=== PATIENT | female | born 1960 ===

== ENCOUNTER 2017-04-15 18:40 | Emergency (ER) | payer MEDICAID ==
[2017-04-15 18:50] VITALS: BP 134/78; PULSE 69; RESP 20; TEMP 98.9; O2SAT 100
--- NOTE | 2017-04-15 20:31 | ED PDOC ---
Upper Extremity Pain/Injury Time Seen by Provider: 04/15/17 19:18 Chief Complaint (Nursing): Upper Extremity Problem/Injury Chief Complaint (Provider): Left elbow pain History Per: Patient History/Exam Limitations: no limitations Onset/Duration Of Symptoms: Persistent (1 week) Current Symptoms Are (Timing): Still Present Quality: "Pain" Exacerbating Factor(s): Movement Additional Complaint(s): Coreen George is a 56 y/o female presenting to the ER on 04/15/2017 with complaints of atraumatic left elbow pain for the past week. Patient notes pain worsens when she turns her palm facing down. She states pain radiates down her arm. Patient denies numbness, weakness, or tingling sensation. Past Medical History Reviewed: Historical Data, Nursing Documentation, Vital Signs Vital Signs: Last Vital Signs Temp 98.9 F 04/15/17 18:48 Pulse 69 04/15/17 18:48 Resp 20 04/15/17 18:48 BP 134/78 04/15/17 18:48 Pulse Ox 100 04/15/17 18:48 - Medical History PMH: Asthma, Rheumatoid Arthritis - Surgical History Surgical History: No Surg Hx - Family History Family History: States: Unknown Family Hx - Social History Current smoker - smoking cessation education provided: No Alcohol: None Drugs: Denies - Home Medications Home Medications: Ambulatory Orders Medication Instructions Recorded Albuterol Sulfate [Albuterol Hfa] 0.09 mg IH QID PRN #30 ml 09/28/14 Methylprednisolone [Medrol Dose 4 mg PO DAILY #21 mg 09/28/14 Pack (21 tabs)] Naproxen [Naprosyn] 500 mg PO BID PRN #30 tab 04/15/17 - Allergies Allergies/Adverse Reactions: Allergies Allergy/AdvReac Type Severity Reaction Status Date / Time No Known Allergies Allergy Verified 09/27/14 22:14 Review of Systems ROS Statement: Except As Marked, All Systems Reviewed And Found Negative Musculoskeletal: Positive for: Arm Pain ((+) left elbow pain ) Neurological: Negative for: Weakness, Numbness Physical Exam - Reviewed Nursing Documentation Reviewed: Yes Vital Signs Reviewed: Yes - Physical Exam Appears: Positive for: Non-toxic, No Acute Distress Head Exam: Positive for: ATRAUMATIC Skin: Positive for: Normal Color. Negative for: Rash Eye Exam: Positive for: Normal appearance Neck: Positive for: Normal Cardiovascular/Chest: Positive for: Regular Rate, Rhythm Pulses-Radial (L): 2+ Pulses-Radial (R): 2+ Extremity: Positive for: Normal ROM (full ROM actively , pain elicited with active pronation). Negative for: Tenderness, Deformity, Swelling Neurologic/Psych: Positive for: Alert, Oriented. Negative for: Motor/Sensory Deficits - ECG O2 Sat by Pulse Oximetry: 100 - Radiology X-Ray: Interpreted by Me (L elbow x-ray) X-Ray Interpretation: No Acute Disease Medical Decision Making Medical Decision Makin:18 Initial Impression- 56 y/o female with left elbow pain Initial Plan- * XR Left Elbow Documented by Orville Thurston, acting as a scribe for Bala Booth PA-C All medical record entries made by the Scribe were at my direction and personally dictated by me. I have reviewed the chart and agree that the record accurately reflects my personal performance of the history, physical exam, medical decision making, and the department course for this patient. I have also personally directed, reviewed, and agree with the discharge instructions and disposition. Disposition - Clinical Impression Clinical Impression: Elbow pain - Patient ED Disposition Is Patient to be Admitted: No - Disposition Referrals: Faiza Evans MD [Staff Provider] - [facility] [Outside] Disposition: Routine/Home Disposition Time: 20:48 Condition: STABLE Prescriptions: Naproxen [Naprosyn] 500 mg PO BID PRN #30 tab PRN Reason: Pain Instructions: Arthralgia (ED) Print Language: SINHALA
--- NOTE | 2017-04-16 13:09 | RAD ---
PROCEDURE: Radiographs of the left elbow. HISTORY: pain COMPARISON: No prior. FINDINGS: BONES: Normal. No fracture. JOINTS: Normal. No osteoarthritis. SOFT TISSUES: Normal. JOINT EFFUSION: None. OTHER FINDINGS: None IMPRESSION: Unremarkable radiographs of the left elbow.
== END 2017-04-15 21:47 | disposition home or self-care (01) ==
LOC: H.ER 18:40
DX: M06.022 Rheumatoid arthritis without rheumatoid factor, left elbow (principal); J45.909 Unspecified asthma, uncomplicated